=== PATIENT | female | born 1980 | race Two or more races ===

== ENCOUNTER 2020-08-26 13:39 | Day surgery (SDC) | payer OTHER ==
[2020-08-26 14:00] VITALS: BMI 28.0
[2020-08-26 14:39] LABS: BASO % 0.6 % (0-2.0); HEMATOCRIT 37.5 % (32.4-45.2); HEMOGLOBIN 12.8 GM/dL (10.7-15.3); LYMPH % 38.6 % (8-40); MCHC 34.1 g/dl (32.0-36.0); MEAN PLT VOLUME 9.7 fl (7.5-11.1); MONO % 6.4 % (3.8-10.2); NEUT % 53.4 % (42.8-82.8); PLATELET COUNT 304 K/MM3 (134-434); RBC 4.13 M/mm3 (3.60-5.2); RDW 13.2 % (11.6-15.6); WHITE BLOOD COUNT 9.4 K/mm3 (4.0-10.0)
[2020-08-26] MEDS ORDERED: DEXTROSE 5%-0.45% SALINE 1,000 ML IV SCH (16:15)
[2020-08-26] MEDS: DEXTROSE 5%-NORMAL SALINE 1,000 ML IV SCH ×2 (17:16→22:15)
[2020-08-26] MEDS ORDERED: MIDAZOLAM HCL 2 MG/2 ML SINGLE DOSE VIAL ONE (17:23)
[2020-08-26] MEDS ORDERED: PROPOFOL 20 ML ONE (17:23)
[2020-08-26] MEDS ORDERED: SUCCINYLCHOLINE CHLORIDE 200 MG/10 ML SYRINGE ONE (17:23)
[2020-08-26] MEDS ORDERED: ROCURONIUM BROMIDE 50 MG/5 ML SYRINGE ONE (17:33)
[2020-08-26 17:41] LABS: INR 1.13 (0.83-1.09); PROTHROMBIN TIME (PATIENT) 13.8 SEC (9.7-13.0)
[2020-08-26] MEDS ORDERED: SEVOFLURANE 250 ML BTL ONE (18:32)
[2020-08-26] MEDS ORDERED: BUPIVACAINE HCL/PF 0.25% (2.5MG/ML) 10 ML VIAL ONE (18:36)
[2020-08-26] MEDS ORDERED: ceFAZolin SODIUM 1 GM VIAL ONE (19:03)
[2020-08-26] MEDS ORDERED: ceFAZolin 2 GRAM PREMIX BAG IVPB ONE (19:05)
[2020-08-26] MEDS ORDERED: BUPIVACAINE HCL/PF 2.5 MG/ML - 30 ML VIAL IJ ONE ×2 (19:29)
[2020-08-26] MEDS ORDERED: KETOROLAC TROMETHAMINE 30 MG/1 ML VIAL ONE (19:35)
[2020-08-26] MEDS ORDERED: DEXAMETHASONE SOD PHOSPHATE 4 MG/1 ML VIAL ONE (19:35)
[2020-08-26] MEDS ORDERED: ONDANSETRON 4 MG/2 ML VIAL IVPUSH PRN (19:39)
[2020-08-26] MEDS ORDERED: PROMETHAZINE HCL 25 MG/1 ML VIAL IVPUSH PRN (19:39)
[2020-08-26] MEDS ORDERED: oxyCODONE HCL 5 MG TABLET PO PRN ×3 (19:39→20:27)
[2020-08-26] MEDS ORDERED: IBUPROFEN 600 MG TABLET (FP) PO PRN (20:27)
[2020-08-26] MEDS ORDERED: ACETAMINOPHEN 325 MG TABLET (FP) PO PRN (20:27)
[2020-08-26] MEDS ORDERED: PROMETHAZINE HCL 25 MG/1 ML VIAL ONE (20:30)
[2020-08-26] MEDS ORDERED: ACETAMINOPHEN INJECTION 100 ML IVPB ONE (20:52)
[2020-08-26] MEDS ORDERED: ACETAMINOPHEN 1000 MG/100 ML VIAL (NON FORMULARY) IVPB ONE (21:15)
[2020-08-27 15:58] VITALS: BP 116/60; PULSE 73; TEMP 98.6
== END 2020-08-27 18:46 | disposition home or self-care (01) ==
LOC: JERFT 13:39 → JER 13:39 → JASUSAT 16:06 → J6S 22:35 → JASUSAT 08-27 14:40
PROVIDERS: ATTEND Obstetrics & Gynecology
PROC: 3E03329 Introduction of Other Anti-infective into Peripheral Vein, Percutaneous Approach (ICD-10-PCS; 2020-08-26)
PROC: 3E033GC Introduction of Other Therapeutic Substance into Peripheral Vein, Percutaneous Approach (ICD-10-PCS; 2020-08-26)
PROC: 3E033NZ Introduction of Analgesics, Hypnotics, Sedatives into Peripheral Vein, Percutaneous Approach (ICD-10-PCS; 2020-08-26)
PROC: 3E033NZ Introduction of Analgesics, Hypnotics, Sedatives into Peripheral Vein, Percutaneous Approach (ICD-10-PCS; 2020-08-26)
PROC: 3E033GC Introduction of Other Therapeutic Substance into Peripheral Vein, Percutaneous Approach (ICD-10-PCS; 2020-08-26)
PROC: 3E0333Z Introduction of Anti-inflammatory into Peripheral Vein, Percutaneous Approach (ICD-10-PCS; principal; 2020-08-26 18:00)
DX: O00.90 Unspecified ectopic pregnancy without intrauterine pregnancy (principal)
CPT/HCPCS: 36415; 76817-TC; 82550; 82553; 84484; 84702; 85025; 85610; 86850; 86900; 86901; 88305-TC; 93005; 93010; 94760; 99284-25; C9803; J0131; U0003; U0005